=== PATIENT | female | born 1945 | race Caucasian/White ===

== ENCOUNTER 2016-08-08 12:20 | Outpatient (CLI) | payer MEDICARE, OTHER | END 2016-08-08 12:21 | disposition home or self-care (01) | DX: M17.12 Unilateral primary osteoarthritis, left knee (principal); M25.462 Effusion, left knee ==

== ENCOUNTER 2016-12-04 14:10 | Outpatient (CLI) | payer MEDICARE, OTHER ==
--- NOTE | 2016-12-04 15:12 | Mammography Report ---
DIGITAL DIAGNOSTIC BILATERAL MAMMOGRAM: 12/04/2016 CLINICAL INDICATION: Status post lumpectomy and radiation therapy for right breast cancer. COMPARISON: 03/27/2016, 02/17/2016, 02/09/2016, 01/27/2016, 10/07/2014, 09/30/2013, 06/18/2012, 09/2011, 04/28/2010, 04/14/2010. TECHNIQUE: Bilateral CC and MLO views, right true lateral and spot magnification views. FINDINGS: The breasts again demonstrate heterogeneously dense fibroglandular parenchyma bilaterally. Course and punctate, typically benign calcifications are present. Postoperative and posttreatment changes are noted in the right breast. No suspicious masses, clustered microcalcifications, or regio ns of architectural distortion are identified. IMPRESSION: PROBABLE BENIGN POSTOPERATIVE AND POSTTREATMENT CHANGES IN THE RIGHT BREAST. RECOMMENDATION: Diagnostic right mammogram in six months. BIRADS CATEGORY 3 - PROBABLE BENIGN FINDINGS. STANDARD QUALIFYING STATEMENTS 1. This examination was reviewed with the aid of Computer-Aided Detection (CAD). 2. A negative or benign imaging report should not delay biopsy if clinically suspicious findings are present. Consider surgical consultation if warranted. More than 5% of cancers are not identified by i maging. 3. Dense breasts may obscure an underlying neoplasm. JOB #: [id number] EXT JOB #:[id number]
== END 2016-12-04 14:11 | disposition home or self-care (01) ==
LOC: DI 14:10
PROVIDERS: ATTEND Internal Medicine Hematology & Oncology
DX: C50.811 Malignant neoplasm of overlapping sites of right female breast (principal)
CPT/HCPCS: 77066

== ENCOUNTER 2017-06-25 12:43 | Outpatient (CLI) | payer MEDICARE ==
--- NOTE | 2017-06-25 14:07 | Mammography Report ---
DIGITAL DIAGNOSTIC RIGHT MAMMOGRAM: 06/25/2017 CLINICAL INDICATION: Followup post-lumpectomy. COMPARISON: 12/04/2016, 03/27/2016, 02/17/2016, 02/09/2016, 01/27/2016, 10/07/2014, 09/30/2013, 06/18/2012, 05/05/2011, 04/14/2010. TECHNIQUE: Right CC, MLO, true lateral, spot magnification views. FINDINGS: The right breast again demonstrates heterogeneously dense fibroglandular parenchyma. Postoperative and posttreatment changes in the right breast are stable. Coarse and punctate, typically benign calcifications are present. No suspicious masses, clustered microcalcifications, or regions of architectural distortion are identified. IMPRESSION: PROBABLE BENIGN POSTOPERATIVE AND POSTTREATMENT CHANGES. RECOMMENDATION: DIAGNOSTIC BILATERAL MAMMOGRAM IN SIX MONTHS, TO ASSURE STABILITY. BIRADS CATEGORY 3-PROBABLE BENIGN FINDINGS. STANDARD QUALIFYING STATEMENTS: 1. This examination was reviewed with the aid of Computer-Aided Detection (CAD). 2. A negative or benign imaging report should not delay biopsy if clinically suspicious findings are present. Consider surgical consultation if warranted. More than 5% of cancers are not identified by imaging. 3. Dense breasts may obscure an underlying neoplasm. TD: 06/25/2017 14:03
== END 2017-06-25 12:44 | disposition home or self-care (01) ==
LOC: DI 12:43
PROVIDERS: ATTEND Internal Medicine
DX: Z08 Encounter for follow-up examination after completed treatment for malignant neoplasm (principal); Z85.3 Personal history of malignant neoplasm of breast

== ENCOUNTER 2018-02-07 14:21 | Outpatient (CLI) | payer MEDICARE ==
--- NOTE | 2018-02-07 16:16 | Mammography Report ---
Reason: BILAT DIAG 1YR F/U RIGHT LUMPECTOMY wTOMO Procedure Date: 02/07/2018 Accession Number: [id number] / [id number] Procedure: JAE - Diagnostic Bilat 3D Tripp CPT Code: 56858 FULL RESULT: EXAM: Diagnostic Bilat 3D Tripp DATE: 02/07/2018 3:09 PM CLINICAL HISTORY: 72-year-old female with history of right breast cancer status post lumpectomy and radiation TECHNIQUE: Bilateral CC and MLO views in 2-D and 3-D technique were obtained. COMPARISON: 06/25/2017, 12/04/2016, 03/27/2016. FINDINGS: The breasts demonstrate heterogeneously dense fibroglandular parenchyma bilaterally. Postsurgical changes are again seen in the right breast. Typically benign coarse calcifications are also seen in the left breast. No suspicious cluster of microcalcifications, mass or architectural distortion is identified. IMPRESSION: Benign findings RECOMMENDATION: Recommend routine annual Screening mammography unless otherwise clinically indicated. BIRADS CATEGORY 2: Benign findings STANDARD QUALIFYING STATEMENTS: 1. This examination was not reviewed with the aid of Computer-Aided Detection (CAD). 2. A negative or benign imaging report should not delay biopsy if clinically suspicious findings are present. Consider surgical consultation if warrented. More than 5% of cancers are not identified by imaging. 3. Dense breasts may obscure an underlying neoplasm. 4. This examination was reviewed with the aid of 3D imaging (tomography).
== END 2018-02-07 14:22 | disposition home or self-care (01) ==
LOC: DI 14:21
PROVIDERS: ATTEND Internal Medicine
DX: C50.811 Malignant neoplasm of overlapping sites of right female breast (principal); M81.0 Age-related osteoporosis without current pathological fracture
CPT/HCPCS: 77062; 77066; 77080

== ENCOUNTER 2018-02-07 14:22 | Outpatient (CLI) | payer MEDICARE ==
--- NOTE | 2018-02-08 14:27 | DEXA Report ---
Reason: OSTEOPOROSIS Procedure Date: 02/07/2018 Accession Number: [id number] / [id number] Procedure: DEX - Dexa Spine and/or Hip CPT Code: FULL RESULT: EXAM: Dexa Spine and/or Hip DATE: 02/07/2018 2:58 PM CLINICAL HISTORY: OSTEOPOROSIS TECHNIQUE: Dual energy x-ray absorptiometry (DXA) was performed on a [employer] System. Regions measured are the AP Spine, femoral neck, and if needed forearm. COMPARISON: None. In accordance with the International Society for Clinical Densitometry (ISCD) guidelines, data from previous exams may be reanalyzed using current recommendations and techniques. This is done to allow a more accurate basis for comparison with the current study. FINDINGS: The data for the lumbar spine is as follows: BMD (g/cm/cm) T-SCORE Z-SCORE REGION L1 0.850 -2.3 -0.3 L2 0.863 -2.8 -0.8 L3 0.900 -2.5 -0.5 L4 0.906 -2.5 -0.5 TOTAL 0.884 -2.5 -0.5 NOTE: All evaluable vertebrae are used for classification The data for the hip is as follows: BMD (g/cm/cm) T-SCORE Z-SCORE REGION Neck 0.694 -2.5 -0.5 TOTAL 0.725 -2.2 -0.5 NOTE: The femoral neck or total proximal femur, whichever is lowest, is used for classification. IMPRESSION: THE WHO CLASSIFICATION BASED ON THE INTERNATIONAL REFERENCE STANDARD IS OSTEOPOROSIS. THE FRACTURE RISK IS HIGH. RECOMMENDATION: Patients with diagnosis of osteoporosis or osteopenia should have regular bone mineral density assessment. For those eligible for Medicare, routine testing is allowed once every 2 years. Testing frequency can be increased for patients who have rapidly progressing disease or for those who are receiving medical therapy to restore bone mass. COMMENT: World Health Organization (WHO) definitions for osteoporosis and osteopenia: NORMAL BMD: T-score at -1.0 or higher, fracture risk is low OSTEOPENIA BMD: T-score between -1.0 and -2.5, fracture risk is increased. OSTEOPOROSIS BMD: T-score at -2.5 or lower, fracture risk is high. National Osteoporosis Foundation recommends: 1. Obtain adequate dietary calcium (at least 1200 mg per day) and vitamin D (400-800 international units per day). 2. Participate, as appropriate, in regular weightbearing and muscle-strengthening exercise. 3. Avoid tobacco use and reduce alcohol and caffeine intake. 4. For more detailed information see the website at www.NOF.org.
== END 2018-02-07 14:23 | disposition home or self-care (01) ==
LOC: DI 14:22
PROVIDERS: ATTEND Internal Medicine
DX: M81.0 Age-related osteoporosis without current pathological fracture (principal)
CPT/HCPCS: 77080

== ENCOUNTER 2018-08-12 10:52 | Outpatient (CLI) | payer MEDICARE ==
--- NOTE | 2018-08-12 13:07 | Mammography Report ---
Reason: R BREAST CA Procedure Date: 08/12/2018 Accession Number: [id number] / [id number] Procedure: JAE - Diagnostic Dig RT CPT Code: FULL RESULT: EXAM: Diagnostic Dig RT DATE: 08/12/2018 11:35 AM CLINICAL HISTORY: Diagnostic mammogram. Personal history of right breast cancer status post lumpectomy with chemoradiation. TECHNIQUE: (R) - Right CC and MLO views were obtained. A right spot CC, right spot ML and right ML view were also obtained. COMPARISON: 02/07/2018 through 09/30/2013. PARENCHYMAL PATTERN: (D) - The breast(s) demonstrate(s) heterogeneously dense fibroglandular parenchyma. FINDINGS: Expected evolution of posttreatment changes, probably benign, with typically benign calcifications. There are no suspicious masses, calcifications, or areas of distortion. IMPRESSION: Probably Benign. BI-RADS category 3. RECOMMENDATION: (6MOS) - Recommend 6 month follow-up exam. At the time of annual left breast screening. BI-RADS CATEGORY: (3) - Probably Benign. STANDARD QUALIFYING STATEMENTS: 1. This examination was not reviewed with the aid of Computer-Aided Detection (CAD). 2. A negative or benign imaging report should not preclude biopsy if clinically suspicious findings are present. 3. Dense breasts may obscure an underlying neoplasm. 4. This examination was reviewed with the aid of 3D breast imaging (tomosynthesis).
== END 2018-08-12 10:53 | disposition home or self-care (01) ==
LOC: DI 10:52
PROVIDERS: ATTEND Internal Medicine
DX: Z08 Encounter for follow-up examination after completed treatment for malignant neoplasm (principal); Z85.3 Personal history of malignant neoplasm of breast

== ENCOUNTER 2019-01-27 09:41 | Outpatient (CLI) | payer MEDICARE ==
[2019-01-27 17:25] LABS: BASOPHILS # (AUTO) 0.1 10^3/uL (0.0-0.1); EOSINOPHILS # (AUTO) 0.3 10^3/uL (0.0-0.7); EOSINOPHILS % (AUTO) 4.8 %; HGB - HEMOGLOBIN 14.1 g/dL (12.0-16.0); LYMPHOCYTES # (AUTO) 1.6 10^3/uL (1.5-3.5); LYMPHOCYTES % (AUTO) 27.2 %; MEAN CORPUSCULAR HEMOGLOBIN 29.7 pg (27.0-31.0); MEAN CORPUSCULAR HGB CONC 32.2 g/dL (32.0-36.0); MEAN CORPUSCULAR VOLUME 92.2 fL (81.0-99.0); MEAN PLATELET VOLUME 10.9 fL (7.9-10.8); MONOCYTES # (AUTO) 0.5 10^3/uL (0.0-1.0); MONOCYTES % (AUTO) 8.7 %; NEUTROPHILS # (AUTO) 3.4 10^3/uL (1.5-6.6); PLT - PLATELET COUNT 234 10^3/uL (130-450); RED BLOOD COUNT 4.75 10^6/uL (4.20-5.40); RED CELL DISTRIBUTION WIDTH 12.9 % (12.0-15.0); WHITE BLOOD COUNT 5.9 x10^3/uL (4.8-10.8)
[2019-01-27 17:41] LABS: ALBUMIN 4.1 g/dL (3.2-5.5); ALBUMIN/GLOBULIN RATIO 1.6 (1.0-2.2); ALKALINE PHOSPHATASE 60 IU/L (42-121); ALT ALANINE AMINOTRANSFERASE 19 IU/L (10-60); AST ASPARTATE AMINOTRANSFERASE 25 IU/L (10-42); BUN - BLOOD UREA NITROGEN 15 mg/dL (6-20); CALCIUM 9.7 mg/dL (8.5-10.3); CARBON DIOXIDE - CO2 28 mmol/L (21-32); CHLORIDE 104 mmol/L (101-111); CHOL/HDL RATIO 3.8 (<4.4); CHOLESTEROL 275 mg/dL; CREATININE 0.7 mg/dL (0.4-1.0); GFR - MDRD 82 (>89); GLUCOSE 87 mg/dL (70-100); HDL CHOLESTEROL 72 mg/dL; LDL CHOLESTEROL,CALCULATED 171 mg/dL; LDL/HDL RATIO 2.4 (<4.4); SODIUM 140 mmol/L (135-145); TOTAL PROTEIN 6.7 g/dL (6.7-8.2); VLDL CHOLESTEROL 32 mg/dL
[2019-01-27 17:45] LABS: HB2 TOTAL 14.4 g/dL; HEMOGLOBIN A1C 0.49 g/dL; HEMOGLOBIN A1C % 5.3 % (4.6-6.2)
== END 2019-01-27 09:42 | disposition home or self-care (01) ==
LOC: LAB.S 09:41
PROVIDERS: ATTEND Internal Medicine
DX: E78.5 Hyperlipidemia, unspecified (principal); G56.00 Carpal tunnel syndrome, unspecified upper limb; M19.90 Unspecified osteoarthritis, unspecified site; M81.0 Age-related osteoporosis without current pathological fracture; R73.01 Impaired fasting glucose; C50.919 Malignant neoplasm of unspecified site of unspecified female breast; H26.9 Unspecified cataract
CPT/HCPCS: 36415; 80053; 80061; 82306; 83036; 83721; 85025

== ENCOUNTER 2019-02-11 13:46 | Outpatient (CLI) | payer MEDICARE ==
--- NOTE | 2019-02-11 15:21 | Mammography Report ---
Reason: RT BREAST CA Procedure Date: 02/11/2019 Accession Number: [id number] / [id number] Procedure: JAE - Diagnostic Dig Bilat CPT Code: FULL RESULT: EXAM: Diagnostic Dig Bilat DATE: 02/11/2019 2:35 PM CLINICAL HISTORY: Diagnostic examination. History of nulliparity. Personal history of breast cancer status post right breast lumpectomy in 2016. TECHNIQUE: (B) - Bilateral CC and MLO views were obtained. Right ML images are obtained. COMPARISON: 08/12/2018 through 09/30/2013. PARENCHYMAL PATTERN: (D) - The breast(s) demonstrate(s) heterogeneously dense fibroglandular parenchyma. FINDINGS: There are typically benign coarse calcifications. Continued probably benign interval evolution of right breast post surgical changes is noted. There are no suspicious masses, calcifications, or areas of distortion. IMPRESSION: Probably Benign. BI-RADS category 3. RECOMMENDATION: (12MOS) - Recommend 12 month follow-up exam. BI-RADS CATEGORY: (3) - Probably Benign. STANDARD QUALIFYING STATEMENTS: 1. This examination was not reviewed with the aid of Computer-Aided Detection (CAD). 2. A negative or benign imaging report should not preclude biopsy if clinically suspicious findings are present. 3. Dense breasts may obscure an underlying neoplasm. 4. This examination was reviewed with the aid of 3D breast imaging (tomosynthesis).
== END 2019-02-11 13:47 | disposition home or self-care (01) ==
LOC: DI 13:46
PROVIDERS: ATTEND Internal Medicine
DX: C50.911 Malignant neoplasm of unspecified site of right female breast (principal)
CPT/HCPCS: 77066

== ENCOUNTER 2019-07-09 08:45 | Day surgery (SDC) | payer MEDICARE ==
[2019-07-09] MEDS ORDERED: MIDAZOLAM 2 MG/2 ML VIAL IVP ONE (12:22)
[2019-07-09] MEDS ORDERED: LACTATED RINGERS 1,000 ML IV ONE (12:22)
[2019-07-09] MEDS ORDERED: fentaNYL 250 MCG/5 ML VIAL IVP ONE (12:22)
[2019-07-09 14:16] VITALS: BP 101/71
== END 2019-07-09 08:46 | disposition home or self-care (01) ==
LOC: SDS 08:45
PROVIDERS: ATTEND Surgery
DX: Z12.11 Encounter for screening for malignant neoplasm of colon (principal); Z86.010 Personal history of colon polyps; K63.89 Other specified diseases of intestine; C50.919 Malignant neoplasm of unspecified site of unspecified female breast
CPT/HCPCS: G0105; J3010; J7120

== ENCOUNTER 2020-02-05 10:43 | Outpatient (CLI) | payer MEDICARE ==
--- NOTE | 2020-02-06 16:46 | Mammography Report ---
BILATERAL DIGITAL DIAGNOSTIC MAMMOGRAM 3D/2D: 02/05/2020 CLINICAL: Patient returns for magnification views of microcalcifications in the right breast. Comparison is made to exams dated: 02/11/2019 mammogram, 08/12/2018 mammogram, 02/07/2018 mammogram, 06/25/2017 mammogram, 12/04/2016 mammogram, and 03/27/2016 mammogram - [facility]. Th e tissue of both breasts is heterogeneously dense. This may lower the sensitivity of mammography. There is an irregular equal density focal asymmetry with an indistinct margin in the left breast at 2 o'clock posterior depth. This is seen on the CC spot additional view, but not well seen on the MLO or ML views. There is architectural distortion associated with the focal asymmetry best seen on the tomosynthesis. Post operative finding in the right breast is stable in appearance. No other significant masses, calcifications, or other findings are seen in either breast. IMPRESSION: INCOMPLETE: NEEDS ADDITIONAL IMAGING EVALUATION 1) The irregular equal density focal asymmetry in the left breast is indeterminate. -A targeted ultrasound is recommended and will immediately follow. 2) Stable appearance of the right breast post-operative changes. -Recommend continued mammographic follow-up. This exam was interpreted at Station ID: [id number]. NOTE: For mammograms, a report in lay terms will be sent to the patient. Approximately 15% of breast malignancies will not be visualized mammographically. In the management of a palpable breast mass, a negative mammogram must not discourage biopsy of a clinically suspicious lesion. Electronically Signed By: Edgar Camarillo M.D. slc/:02/05/2020 12:51:58 ACR BI-RADS Category 0: Incomplete 3340F PARENCHYMAL PATTERN: (D) - The breast(s) demonstrate(s) heterogeneously dense fibroglandular parliy ma. BI-RADS CATEGORY: (0) - 0 Ultrasound [id number] Immediate follow-up LATERALITY: (B)
--- NOTE | 2020-02-06 16:46 | Ultrasound Report ---
LIMITED ULTRASOUND OF LEFT BREAST AND AXILLA: 02/05/2020 CLINICAL: Patient returns for additional imaging over a suspected mass in the left breast. Comparison is made to exams dated: 02/05/2020 mammogram, 02/11/2019 mammogram, 08/12/2018 mammogram, 1 mammogram, 06/25/2017 mammogram, and 12/04/2016 mammogram - [facility]. Color flow and real-time ultrasound of the left breast upper outer quadrant and axilla regions were p erformed. Pryor scale images of the real-time examination were reviewed. There is a 1.2 cm x 0.9 cm x 0.7 cm irregular mass in the left breast at 2 o'clock posterior depth 6 cm from the nipple. This irregular mass is hypoechoic with posterior acoustic shadowing. This corre lates with mammography findings. Color flow imaging demonstrates that there is an adjacent vasculari ty. No significant abnormalities were seen sonographically in the left axilla. IMPRESSION: SUSPICIOUS OF MALIGNANCY The 1.2 cm x 0.9 cm x 0.7 cm irregular mass in the left breast 2:00 6 cm from the nipple is at a mode rate suspicion for malignancy. An ultrasound guided biopsy is recommended. Exam findings were discussed with the patient by Dr. Home Morris. This exam was interpreted at Station ID: [id number]. Electronically Signed By: Edgar Camarillo M.D. slc/:02/05/2020 12:55:09 Ultrasound BI-RADS: 4b Moderate suspicion of malignancy BI-RADS CATEGORY: (4b) - Mod Susp None [id number] Immediate follow-up LATERALITY: ()
== END 2020-02-05 10:44 | disposition home or self-care (01) ==
LOC: DI 10:43
PROVIDERS: ATTEND Internal Medicine
DX: N63.21 Unspecified lump in the left breast, upper outer quadrant (principal)
CPT/HCPCS: 76642; 77066

== ENCOUNTER 2020-02-11 12:05 | Outpatient (CLI) | payer MEDICARE ==
[2020-02-11] MEDS ORDERED: BUFFERED LIDOCAINE 10 ML SYRINGE ONE (12:19)
[2020-02-11] MEDS ORDERED: BUFFERED LIDOCAINE 10 ML SYRINGE IU ONE (16:28)
--- NOTE | 2020-02-16 07:06 | Ultrasound Report ---
ULTRASOUND GUIDED BIOPSY LEFT BREAST USING VACUUM DEVICE WITH MARKING DEVICE INSERTED AND POST DIGITA L MAMMOGRAPHIC IMAGIN02/11/2020 CLINICAL: Left breast mass. PATIENT CONSENT: Risks (minor bleeding, infection, vasovagal reaction and repeat procedure), benefits and alternatives were explained to the patient and written informed consent was obtained. Correlation is made to exams dated: 02/05/2020 ultrasound, 02/05/2020 mammogram, 02/11/2019 mammogram, 08/12/2018 mammogram, 02/07/2018 mammogram, and 06/25/2017 mammogram - [facility]. An ultrasound guided biopsy using real-time ultrasound was performed for the 1.2 cm x 0.9 cm x 0.7 cm mass located in the left breast at 2 o'clock posterior depth 6 cm from the nipple. This was describ ed on the previous ultrasound report. The skin was prepped in the usual manner. Local anesthetic wa s administered to the access site. A skin caleb was made in the breast. The abnormality was approach ed from the lateral aspect. A 12 gauge biopsy needle was placed adjacent to the abnormality under ul trasound guidance. Once the needle was documented to be in the correct location, three specimens wer e obtained using the [employer] system. A clip was inserted into the biopsy cavity. A skin closur e strip and a sterile dressing were applied to the access site. Post procedure digital mammographic imaging demonstrates the location device at the targeted area and partial removal of the abnormality. The specimens were sent to the laboratory for pathological analysis. IMPRESSION: ULTRASOUND GUIDED BIOPSY MALIGNANT Ultrasound guided biopsy of the 1.2 cm x 0.9 cm x 0.7 cm mass in the left breast at 2 o'clock posteri or depth 6 cm from the nipple was successful with no apparent post procedure complications. Patholog y indicates malignant invasive lobular carcinoma ([place]). Pathology results are concordant with imaging findings. A surgical/oncologic consultation is recommended. This exam was interpreted at Station ID: [id number]. Home Sosa M.D., jr,aty/:02/13/2020 18:19:42 BI-RADS CATEGORY: () - Unspecified - other recall n/a LATERALITY: (B)
== END 2020-02-11 12:06 | disposition home or self-care (01) ==
LOC: DI 12:05
PROVIDERS: ATTEND Internal Medicine
DX: C50.212 Malignant neoplasm of upper-inner quadrant of left female breast (principal); Z17.0 Estrogen receptor positive status [ER+]
CPT/HCPCS: 19083

== ENCOUNTER 2020-03-24 09:04 | Outpatient (CLI) | payer MEDICARE ==
[2020-03-24] MEDS ORDERED: GADOBUTROL 7.5 MMOL/7.5 ML VIAL ONE (09:27)
[2020-03-24] MEDS: GADOBUTROL 7.5 MMOL/7.5 ML VIAL IVP ONE (11:57)
--- NOTE | 2020-03-26 09:38 | MRI Report ---
BREAST MRI OF BOTH BREASTS- WITH CAD: 03/24/2020 CLINICAL: Patient returns today to evaluate a focal asymmetry in the left breast. No prior exams were available for comparison. Interpretation of this MRI was correlated with available mammograms, ultrasounds, and clinical inform ation. Informed consent was obtained from the patient. Gadolinium contrast calibrated to patient we ight was injected. Axial T1, T2, sagittal T1, and pre and post contrast T1 images were obtained with a dedicated breast MRI. Post processing was performed including computer generated subtraction, com puter aided calculations of any tumor volumes and dimensions, and 3D multiplanar reconstruction. Right breast background enhancement is moderate and asymmetric increased when compared to the left, w hich may reflect an element of scarring related to prior partial mastectomy changes. There is no mas s or suspicious enhancement in the right breast. No skin thickening or neovascularity. The right NAC is unremarkable. No threshold enlarged or suspicious right axillary or internal mammary lymph nodes. Left breast background enhancement is mild, asymetrically decreased when compared with the right. The re is a T1 hyperintense hematoma vs proteinaceous seroma at the biopsy site measuring 1.1 cm maximum axial dimension, and containing the biopsy clip (axial series 901 image 42/67). Along the medial and superior aspect of the biopsy cavity, there is faint enhancement measuring approximately 1.0 x 1.5 x 0.8 cm AP x CC x LR. No additional abnormal enhancement in the left breast. No skin thickening or ashley vascularity. Normal appearance of the nipple areolar complex. No supicious left axillary or internal mammary lymph node. IMPRESSION: KNOWN BIOPSY PROVEN MALIGNANCY Left breast invasive lobular carcinoma, status post biopsy. Post-procedural hematoma (vs proteinaceou s seroma) measuring 1.1 cm at the lateral aspect of the mass, marginated medially and superiorly by e nhancing tumor measruing 1.0 x 1.5 x 0.8 cm AP x CC x LR. No additional suspicious abnormality in the left breast. No findings of metastatic or contralateral disease. This exam was interpreted at Station ID: [id number]. Electronically Signed By: Home Morris M.D. jr/:03/26/2020 09:31:52 ACR BI-RADS Category 6: Known biopsy proven malignancy 3346F BI-RADS CATEGORY: (6) - 6 Unspecified - other recall n/a LATERALITY: (B)
== END 2020-03-24 09:05 | disposition home or self-care (01) ==
LOC: DI 09:04
PROVIDERS: ATTEND Surgery
DX: C50.912 Malignant neoplasm of unspecified site of left female breast (principal)
CPT/HCPCS: 77049; A9585

== ENCOUNTER 2020-04-29 17:06 | Outpatient (CLI) | payer MEDICARE | END 2020-04-29 17:07 | disposition home or self-care (01) | LOC: COV 17:06 | PROVIDERS: ATTEND Surgery | DX: Z01.812 Encounter for preprocedural laboratory examination (principal); C50.912 Malignant neoplasm of unspecified site of left female breast; Z20.828 Contact with and (suspected) exposure to other viral communicable diseases ==

== ENCOUNTER 2020-05-03 08:05 | Day surgery (SDC) | payer MEDICARE ==
[2020-05-03] MEDS ORDERED: BUFFERED LIDOCAINE 10 ML SYRINGE ONE (09:10)
[2020-05-03] MEDS ORDERED: ATROPINE ABBOJECT 1 MG/10 ML SYRINGE IVP PRN (09:15)
[2020-05-03] MEDS ORDERED: MORPHINE 2 MG/ML CARPUJECT IVP PRN (09:15)
[2020-05-03] MEDS ORDERED: fentaNYL 100 MCG/2 ML VIAL IVP PRN (09:15)
[2020-05-03] MEDS ORDERED: ePHEDrine 50 MG/ML VIAL IVP PRN (09:15)
[2020-05-03] MEDS ORDERED: METOCLOPRAMIDE 10 MG/2 ML VIAL IVP PRN (09:15)
[2020-05-03] MEDS ORDERED: ONDANSETRON 4 MG/2 ML VIAL IVP PRN ×2 (09:15→15:43)
[2020-05-03] MEDS ORDERED: HYDROmorphone 0.5 MG/0.5 ML SYRINGE IVP PRN (09:15)
[2020-05-03] MEDS ORDERED: NALOXONE 0.4 MG/ML VIAL IVP PRN (09:15)
--- NOTE | 2020-05-03 09:18 | ANESTHESIA ---
Pre-Anesthesia VS, & Labs - Diagnosis left breast cancer - Procedure left breast lumpectomy following wire localization Vital Signs: Temp Pulse Resp BP Pulse Ox 36.8 C 57 L 16 120/74 99 05/03/20 08:43 05/03/20 08:43 05/03/20 08:43 05/03/20 08:43 05/03/20 08:43 Height: 5 ft 2 in Weight (kg): 57 kg Body Mass Index: 22.9 BMI Classification: Healthy weight - NPO >8 hours - Is Patient ?: No - Lab Results Lab results reviewed: Yes Home Medications and Allergies Active Medications Scopolamine HBr (Scopolamine Patch) 1 patch TOP Q3D RUBENS Calcium Carbonate [Calcium] 4,000 mg PO DAILY 04/12/16 Cholecalciferol (Vitamin D3) [Vitamin D3] 2,000 units PO DAILY 04/12/16 Multivitamin [Multiple Vitamins] 1 tab PO DAILY 04/12/16 Niacin [Niacin ER] 2,000 mg PO DAILY 04/12/16 Red Yeast Rice 2,400 mg PO DAILY 04/12/16 Magnesium Oxide [Magnesium] 1 cap PO DAILY 08/15/17 Allergies/Adverse Reactions: Allergies Allergy/AdvReac Type Severity Reaction Status Date / Time No Known Drug Allergies Allergy Verified 02/25/20 13:14 Anes History & Medical History - Anesthetic History Anesthesia Complications: reports: No previous complications Family history of Anesthesia Complications: Denies Family history of Malignant Hyperthermia: Denies - Medical History Cardiovascular: reports: High cholesterol Pulmonary: reports: Pneumonia Gastrointestinal: reports: GERD, Colon polyps Urinary: reports: None Musculoskeletal: reports: Osteoarthritis, Osteoporosis Endocrine/Autoimmune: reports: None Skin: reports: None - Surgical History General: Colonoscopy Gynecologic: Other Orthopedic: Other Exam General: Alert, Oriented x3, Cooperative, No acute distress Dental: WNL Mouth Openin Fingerbreadth Neck Mobility: Normal Mallampati classification: II Respiratory: Lungs clear, Normal breath sounds, No respiratory distress, No accessory muscle use Cardiovascular: Regular rate, Normal S1, Normal S2, No murmurs Plan Anesthesia Type: General Consent for Procedure(s) Verified and Reviewed: Yes Code Status: Attempt Resuscitation ASA classification: 2-Mild systemic disease Is this case an emergency?: No
[2020-05-03] MEDS ORDERED: SCOPOLAMINE PATCH TOP SCH (10:00)
[2020-05-03] MEDS ORDERED: LACTATED RINGERS 1,000 ML IV SCH (10:00)
[2020-05-03] MEDS ORDERED: BUFFERED LIDOCAINE 10 ML SYRINGE IU ONE (11:05)
[2020-05-03] MEDS ORDERED: ceFAZolin 2 GM/50 ML 2 GM/50 ML BAG IV ONE (11:26)
[2020-05-03] MEDS ORDERED: BUPIVACAINE 0.5%-EPI 1:200000 PF 30 ML VIAL ONE (12:46)
[2020-05-03] MEDS ORDERED: LIDOCAINE 1% 50 ML MDV ONE (12:46)
[2020-05-03] MEDS ORDERED: PROPOFOL 200 MG/20 ML VIAL IVP ONE (13:03)
[2020-05-03] MEDS ORDERED: ONDANSETRON 4 MG/2 ML VIAL ONE (13:03)
[2020-05-03] MEDS ORDERED: DEXAMETHASONE 4 MG/ML VIAL ONE (13:03)
[2020-05-03] MEDS ORDERED: fentaNYL 100 MCG/2 ML VIAL ONE (13:03)
[2020-05-03] MEDS ORDERED: LIDOCAINE-MPF 2% 5 ML VIAL ONE (13:03)
[2020-05-03] MEDS ORDERED: KETOROLAC 30 MG/ML VIAL ONE (13:03)
--- NOTE | 2020-05-03 13:03 | Nuclear Medicine Report ---
PROCEDURE: Lymph Node Scintigraphy INDICATIONS: LT BREAST CA RADIOPHARMACEUTICAL: 0.5-1.0 mCi Millipore filtered Tc-99m sulfur colloid. TECHNIQUE: The area around the nipple was prepped and draped in a sterile fashion. Tc-99m sulfur colloid was in jected intra-dermally in the outer edge of the areola in the left breast. Images were obtained subse quently. A body contour outline was obtained. FINDINGS: There is/are several lymph node(s) in the ipsilateral axilla and left supraclavicular region, which i s marked on the skin and the images for referring physician. IMPRESSION: Administration of radiotracer into the left breast periareolar region for intra-operativ e sentinel lymph node localization. Reviewed by: Eric Gannon MD on 05/03/2020 1:02 PM PST Approved by: Eric Gannon MD on 05/03/2020 1:02 PM PST Station ID: [id number]
[2020-05-03] MEDS ORDERED: BUPIVACAINE 0.5% PF 30 ML VIAL SUBQ ONE ×3 (13:33)
[2020-05-03] MEDS ORDERED: LIDOCAINE 1%-EPI 1:100000 30 ML MDV SUBQ ONE ×3 (13:33)
[2020-05-03] MEDS ORDERED: ACETAMINOPHEN 1,000 MG/100 ML 100 ML IV ONE (14:42)
--- NOTE | 2020-05-03 15:36 | OPERATIVE REPORT ---
Operative Report - General Procedure Date: 05/03/20 Planned Procedure: Left breast lumpectomy and sentinel node biopsy after needle localization and mapping. Pre-Op Diagnosis: Biopsy proven left breast cancer Procedure Performed: Left breast lumpectomy and sentinel node biopsy after needle localization and mapping. Post Op Diagnosis: Same - Procedure Note Primary Surgeon: Luzmaria Anesthesia Provider: BRIAN Altman Pathology: 1. left breast lump with wire - short stitch sup, wire lat, double anterior 2. additional inferior margin - short superior, long lateral, double anter 3. one sentinel node Estimated Blood Loss (mL): 20 Findings: Wire contained in the first specimen Clip and mass contained within the second specimen Complications: None apparent - Other Other Information/Narrative: After obtaining informed consent, the patient was brought to the operating room and placed in the supine position on the operating table. Following successful induction of general endotracheal anesthesia, appropriate padding of all bony prominences, and placement of appropriate monitors, the left breast was prepped and draped in the standard surgical fashion. A timeout was held per scope protocol. All elements of the surgical safety checklist were followed before, during, and after the procedure. We began the procedure with a sentinel node dissection. The site of the brightest node had been marked in radiology with 2 skin marker axis. The neoprobe was used to identify the site of greatest uptake at level 2 in the patient's axilla. The patient is quite thin and has minimal axillary tissue. An incision was created over this area of uptake and carried through the skin and subcutaneous tissue to enter the axillary node packet. The first sentinel node was easily identified. It was large and firm. It was carefully dissected free from surrounding stop structures sharply, all lymphatics and vasculature were addressed with clips prior to division. The node was liberated into the field. 10-second counts are recorded. Survey of the axilla revealed a background of 16 and no additional targets. Background in the room was 0. The axillary incision was then closed in 2 layers with Vicryl and Monocryl sutures. We turned our attention to the left breast mass. The area over the mass and in the periareolar region was infiltrated with a mixture of local anesthetics to cry to field block. A periareolar incision was then created over the region of the target mass. The wire and surrounding tissue were then sharply dissected from surrounding structures and delivered into the field. The specimen was marked for orientation and submitted for specimen radiograph. The clip was not seen within the specimen. An additional inferior margin was obtain in the same manner as the original specimen. That is, it was dissected sharply from the surrounding tissue and delivered into the field. It was marked for orientation and submitted for specimen radiograph. The wire was contained within this sp ecimen. The wound was checked for hemostasis. It was irrigated again with warm water. The wound was then closed in 2 layers with Vicryl and Monocryl sutures. Dermabond was applied to the skin incision. All sponge, needle, and instrument counts were correct at the conclusion of the case. The patient was let awakened anesthesia without difficulty and taken to the postanesthesia care unit in good condition.
[2020-05-03] MEDS ORDERED: LACTATED RINGERS 1,000 ML IV ONE (15:38)
--- NOTE | 2020-05-03 15:41 | ANESTHESIA POST OP EVALUATION ---
Anesthesia Post Eval - Post Anesthesia Eval Vitals: Last Vital Signs Temp 36.8 C 05/03/20 08:43 Pulse 57 L 05/03/20 08:43 Resp 16 05/03/20 08:43 BP 120/74 05/03/20 08:43 Pulse Ox 99 05/03/20 08:43 CV Function Including HR & BP: positive: Stable Pain Control: positive: Satisfactory Nausea & Vomiting: positive: Negative Mental Status: positive: Baseline Respiratory Status: Airway Patent Hydration Status: Satisfactory Anesthesia Complications: positive: None
[2020-05-03] MEDS ORDERED: IBUPROFEN 600 MG TABLET PO PRN (15:43)
[2020-05-03] MEDS ORDERED: oxyCODONE 5 MG TABLET PO PRN (15:43)
[2020-05-03] MEDS ORDERED: ACETAMINOPHEN 325 MG TABLET PO PRN (15:43)
[2020-05-03 16:31] VITALS: BP 124/75
--- NOTE | 2020-05-04 08:00 | Ultrasound Report ---
WIRE LOCALIZATION LEFT BREAST: 05/03/2020 CLINICAL: Pre op wire localization with ultrasound. Correlation is made to exams dated: 03/24/2020 breast MRI, 02/11/2020 ultrasound biopsy, 02/05/2020 u ltrasound, 02/05/2020 mammogram, 02/11/2019 mammogram, and 08/12/2018 mammogram - [facility]. A wire localization was performed for the irregular shaped mass located in the left breast at 2 o'keira ck posterior depth. The skin was prepped in the usual manner. Local anesthetic was administered to the access site. A wire was inserted into the targeted area. IMPRESSION: WIRE LOCALIZATION Wire localization for the mass in the left breast at 2 o'clock posterior depth was successful. A spe cimen radiograph is recommended. This exam was interpreted at Station ID: [id number]. Brodie person/:05/03/2020 15:28:36 BI-RADS CATEGORY: () - Biopsy follow-up [id number] Immediate follow-up LATERALITY: (B)
--- NOTE | 2020-05-04 08:00 | Mammography Report ---
SPECIMEN LEFT BREAST: 05/03/2020 CLINICAL: Left breast specimen. Correlation is made to exams dated: 05/03/2020 mammogram, 05/03/2020 localization, and 02/05/2020 mammogr am - [facility]. A surgical specimen was imaged for the previous biopsy site located in the left breast at 2 o'clock IMPRESSION: SPECIMEN The imaged specimen includes a biopsy clip and the localization wire. Waiting for pathology results. A final report will be issued when these become available. This exam was interpreted at Station ID: [id number]. Brodie person/:05/03/2020 15:30:33 BI-RADS CATEGORY: () - Biopsy follow-up [id number] Immediate follow-up LATERALITY: (B)
--- NOTE | 2020-05-06 11:38 | Mammography Report ---
UNILATERAL LEFT DIGITAL DIAGNOSTIC MAMMOGRAM 3D/2D: 05/03/2020 CLINICAL: Post left breast ultrasound guided wire localization placement imaging. Comparison is made to exams dated: 05/03/2020 localization, 02/11/2020 ultrasound biopsy, 02/11/2019 m ammogram, 08/12/2018 mammogram, and 02/07/2018 mammogram - [facility]. The tissue o f left breast is heterogeneously dense. This may lower the sensitivity of mammography. There is a localization wire in the appropriate position in the left breast at 2 o'clock middle depth . There is a biopsy clip associated with the wire. IMPRESSION: POST PROCEDURE MAMMOGRAM FOR MARKER PLACEMENT Successful wire localization. Recommend specimen radiograph. This exam was interpreted at Station ID: [id number]. NOTE: For mammograms, a report in lay terms will be sent to the patient. Approximately 15% of breast malignancies will not be visualized mammographically. In the management of a palpable breast mass, a negative mammogram must not discourage biopsy of a clinically suspicious lesion. Electronically Signed By: Brodie person/:05/06/2020 09:09:59 ACR BI-RADS Category Post-procedure mammogram for marker placement PARENCHYMAL PATTERN: (D) - The breast(s) demonstrate(s) heterogeneously dense fibroglandular phi alexander. BI-RADS CATEGORY: () - Biopsy follow-up [id number] Immediate follow-up LATERALITY: (B)
== END 2020-05-03 08:06 | disposition home or self-care (01) ==
LOC: SDS 08:05
PROVIDERS: ATTEND Surgery
PROC: 07B60ZX Excision of Left Axillary Lymphatic, Open Approach, Diagnostic (ICD-10-PCS; 2020-05-03)
PROC: 0HBU0ZZ Excision of Left Breast, Open Approach (ICD-10-PCS; principal; 2020-05-03 13:45)
DX: C50.412 Malignant neoplasm of upper-outer quadrant of left female breast (principal); Z17.0 Estrogen receptor positive status [ER+]; E78.5 Hyperlipidemia, unspecified; M81.0 Age-related osteoporosis without current pathological fracture; M17.10 Unilateral primary osteoarthritis, unspecified knee; Z87.01 Personal history of pneumonia (recurrent)
CPT/HCPCS: 19285; 19301; 38525; 76098; 77065; 78195; J0131; J0690; J7120; 88307; 88342

== ENCOUNTER 2020-08-26 09:46 | Outpatient (CLI) | payer MEDICARE ==
--- NOTE | 2020-08-26 17:13 | DEXA Report ---
PROCEDURE: Dexa Spine and/or Hip INDICATIONS: OSTEOPOROSIS TECHNIQUE: Dual energy x-ray absorptiometry (DXA) was performed on a [employer] System. Regions measur ed are the AP Spine, femoral neck, and if needed forearm. COMPARISON: 02/07/2018. FINDINGS: Lumbar Spine: Bone Mineral Density 0.835 g/cm/cm,T score -2.9, osteoporosis Left Hip: Bone Mineral Density 0.754 g/cm/cm,T score -2.0, osteopenia Left Femoral Neck: Bone Mineral Density 0.728 g/cm/cm, T score -2.2, osteopenia (T score greater or equal to -1.0: NORMAL) (T score from -1.1 to -2.4: OSTEOPENIA) (T score less than or equal to -2.5 to: OSTEOPOROSIS) Impression: Osteoporosis. Patient's bone mineral density has increased by 4% in the interval since pr ior examination obtained 02/07/2018. Patients with diagnosis of osteoporosis or osteopenia should have regular bone mineral density assess ment. For those eligible for Medicare, routine testing is allowed once every 2 years. Testing frequ ency can be increased for patients who have rapidly progressing disease or for those who are receivin g medical therapy to restore bone mass. Reviewed by: Stephanie Weinberg MD, PhD on 08/26/2020 5:11 PM PDT Approved by: Stephanie Weinberg MD, PhD on 08/26/2020 5:11 PM PDT Station ID: [id number]
== END 2020-08-26 09:47 | disposition home or self-care (01) ==
LOC: DI 09:46
PROVIDERS: ATTEND Internal Medicine
DX: C50.911 Malignant neoplasm of unspecified site of right female breast (principal); C50.912 Malignant neoplasm of unspecified site of left female breast; M81.0 Age-related osteoporosis without current pathological fracture

== ENCOUNTER 2021-02-17 09:08 | Outpatient (CLI) | payer MEDICARE ==
--- NOTE | 2021-02-18 09:02 | Mammography Report ---
BILATERAL DIGITAL DIAGNOSTIC MAMMOGRAM 3D/2D: 02/17/2021 CLINICAL: Post left lumpectomy. Routine screening. Personal history of right breast cancer and new di agnosis of left breast cancer. Comparison is made to exams dated: 05/03/2020 specimen, 05/03/2020 mammogram, 03/24/2020 breast MRI, 02/05/2020 ultrasound, 02/11/2020 ultrasound biopsy, and 05/03/2020 localization - [facility] nt. The tissue of both breasts is heterogeneously dense. This may lower the sensitivity of mammogr aphy. There is a new post-surgical scar in the left breast at 2 o'clock middle depth. Left axillary clip. No other significant masses, calcifications, or other findings are seen in either breast. IMPRESSION: BENIGN There is no mammographic evidence of malignancy. Left breast 2:00 post-operative scar. Possible underlying seroma. Consider re-imaging the left breast at 6 months. Exam findings were conveyed to the patient. This exam was interpreted at Station ID: [id number]. NOTE: For mammograms, a report in lay terms will be sent to the patient. Approximately 15% of breast malignancies will not be visualized mammographically. In the management of a palpable breast mass, a negative mammogram must not discourage biopsy of a clinically suspicious lesion. Electronically Signed By: Edgar Camarillo M.D. slc/:02/17/2021 10:30:43 ACR BI-RADS Category 2: Benign Finding(s) 3342F PARENCHYMAL PATTERN: (D) - The breast(s) demonstrate(s) heterogeneously dense fibroglandular phi alexander. BI-RADS CATEGORY: (2) - 2 Mammogram [id number] 6 month follow-up LATERALITY: (B)
== END 2021-02-17 09:09 | disposition home or self-care (01) ==
LOC: DI 09:08
PROVIDERS: ATTEND Internal Medicine
DX: C50.912 Malignant neoplasm of unspecified site of left female breast (principal); C50.412 Malignant neoplasm of upper-outer quadrant of left female breast

== ENCOUNTER 2022-04-25 10:44 | Outpatient (CLI) | payer MEDICARE ==
--- NOTE | 2022-04-26 10:41 | Mammography Report ---
BILATERAL DIGITAL DIAGNOSTIC MAMMOGRAM 3D/2D: 04/25/2022 CLINICAL: Personal history of bilateral breast cancer. Comparison is made to exams dated: 02/17/2021 mammogram, 05/03/2020 mammogram, 03/24/2020 breast MRI, 02/05/2020 mammogram, 02/11/2019 mammogram, and 08/12/2018 mammogram - [facility]. Both breasts are heterogeneously dense, which may obscure small masses (category c / 51-75% glandular tissue). The patient is status post partial mastectomy right breast. The patient is status post partial maste ctomy left breast. There are benign appearing coarse, punctate, round calcifications in both breasts that are not significantly changed. No significant masses, calcifications, or other findings are seen in either breast. IMPRESSION: BENIGN There is no mammographic evidence of malignancy. Expected post surgical changes of the bilateral isiah st compatible with bilateral partial mastectomies. A 1 year screening mammogram is recommended; howev er, shorter interval surveillance can be considered at the direction of treating oncologic/surgical t eam. Findings and recommendations were conveyed to the patient during today's evaluation. Future imaging is recommended as follows: 11/05/2022 screening mammogram. This exam was interpreted at Station ID: [id number]. NOTE: For mammograms, a report in lay terms will be sent to the patient. Approximately 15% of breast malignancies will not be visualized mammographically. In the management of a palpable breast mass, a negative mammogram must not discourage biopsy of a clinically suspicious lesion. Electronically Signed By: Jules Sosa M.D. aty/:04/25/2022 12:13:12 ACR BI-RADS Category 2: Benign Finding(s) 3342F PARENCHYMAL PATTERN: (D) - The breast(s) demonstrate(s) heterogeneously dense fibroglandular parjerry ma. BI-RADS CATEGORY: (2) - 2 RECOMMENDATION: (ANNUAL) - Recommend routine annual screening mammography. [id number] 1 year screening LATERALITY: (B)
== END 2022-04-25 10:45 | disposition home or self-care (01) ==
LOC: DI 10:44
PROVIDERS: ATTEND Surgery
DX: Z08 Encounter for follow-up examination after completed treatment for malignant neoplasm (principal); Z85.3 Personal history of malignant neoplasm of breast

== ENCOUNTER 2022-10-17 11:46 | Day surgery (SDC) | payer MEDICARE ==
[2022-10-17] MEDS ORDERED: LACTATED RINGERS 1,000 ML IV ONE ×2 (12:32→14:39)
--- NOTE | 2022-10-17 12:38 | ANESTHESIA ---
Pre-Anesthesia VS, & Labs - Diagnosis hx of polyps - Procedure colonoscopy Vital Signs: Temp Pulse Resp BP Pulse Ox O2 Flow Rate 36.5 C 61 22 119/83 H 96 10/17/22 11:56 10/17/22 11:56 10/17/22 11:56 10/17/22 11:56 10/17/22 11:56 Height: 5 ft 2 in Weight (kg): 57 kg Body Mass Index: 22.9 BMI Classification: Normal - NPO >8 hours - Is Patient ?: No Home Medications and Allergies Cholecalciferol (Vitamin D3) [Vitamin D3] 2,000 units PO DAILY 04/12/16 Multivitamin [Multiple Vitamins] 1 tab PO DAILY 04/12/16 Niacin [Niacin ER] 2,000 mg PO DAILY 04/12/16 Red Yeast Rice 2,400 mg PO DAILY 04/12/16 Fulvestrant [Faslodex] 02/02/21 Calcium Citrate 1,200 mg PO DAILY 08/17/21 Magnesium Oxide [Magnesium] 200 mg PO DAILY 02/01/22 Allergies/Adverse Reactions: Allergies Allergy/AdvReac Type Severity Reaction Status Date / Time No Known Drug Allergies Allergy Verified 09/01/20 14:14 Anes History & Medical History - Anesthetic History Anesthesia Complications: reports: No previous complications Family history of Anesthesia Complications: Denies Family history of Malignant Hyperthermia: Denies - Medical History Cardiovascular: reports: High cholesterol Pulmonary: reports: Pneumonia Gastrointestinal: reports: GERD, Colon polyps Urinary: reports: None Musculoskeletal: reports: Osteoarthritis, Osteoporosis Endocrine/Autoimmune: reports: None Skin: reports: None - Surgical History General: reports: Colonoscopy Gynecologic: reports: Other Orthopedic: reports: Other Exam General: Alert, Oriented x3, Cooperative Dental: WNL Mouth Openin Fingerbreadth Mallampati classification: II Thyromental Distance: 4-6 cm Respiratory: Lungs clear Cardiovascular: Regular rate Plan Anesthesia Type: General Consent for Procedure(s) Verified and Reviewed: Yes Code Status: Attempt Resuscitation ASA classification: 2-Mild systemic disease Is this case an emergency?: No
[2022-10-17] MEDS ORDERED: PROPOFOL 200 MG/20 ML VIAL IVP ONE (13:45)
[2022-10-17 14:37] VITALS: BP 110/90
--- NOTE | 2022-10-17 15:03 | ANESTHESIA POST OP EVALUATION ---
Anesthesia Post Eval - Post Anesthesia Eval Vitals: Last Vital Signs Temp 36.0 C L 10/17/22 14:20 Pulse 58 L 10/17/22 14:20 Resp 16 10/17/22 14:20 BP 110/90 H 10/17/22 14:20 Pulse Ox 100 10/17/22 14:20 O2 Flow Rate CV Function Including HR & BP: Stable Pain Control: Satisfactory Nausea & Vomiting: Negative Mental Status: Baseline Respiratory Status: Airway Patent Hydration Status: Satisfactory Anesthesia Complications: None
== END 2022-10-17 11:47 | disposition home or self-care (01) ==
LOC: SDS 11:46
PROVIDERS: ATTEND Surgery
PROC: 0DBL8ZX Excision of Transverse Colon, Via Natural or Artificial Opening Endoscopic, Diagnostic (ICD-10-PCS; 2022-10-17)
PROC: 0DBN8ZX Excision of Sigmoid Colon, Via Natural or Artificial Opening Endoscopic, Diagnostic (ICD-10-PCS; 2022-10-17)
PROC: 0DBM8ZX Excision of Descending Colon, Via Natural or Artificial Opening Endoscopic, Diagnostic (ICD-10-PCS; 2022-10-17)
PROC: 0DBK8ZX Excision of Ascending Colon, Via Natural or Artificial Opening Endoscopic, Diagnostic (ICD-10-PCS; principal; 2022-10-17 12:45)
DX: R19.5 Other fecal abnormalities (principal); D12.2 Benign neoplasm of ascending colon; D12.3 Benign neoplasm of transverse colon; D12.4 Benign neoplasm of descending colon; K63.5 Polyp of colon; K57.30 Diverticulosis of large intestine without perforation or abscess without bleeding
CPT/HCPCS: 45380; J7120

== ENCOUNTER 2022-11-09 07:25 | Day surgery (SDC) | payer MEDICARE ==
[2022-11-09] MEDS: PROPARACAINE 0.5% OPHTH DROPS 15 ML ONE (07:40)
[2022-11-09] MEDS: PHENYLEPHRINE 2.5% OPHTH 2 ML DROPS ONE (07:40)
[2022-11-09] MEDS: CYCLOPENTOLATE 1% OPHTH DROPS 2 ML ONE (07:40)
[2022-11-09] MEDS: KETOROLAC 0.45% OPHTH DROPS ONE (07:40)
[2022-11-09] MEDS ORDERED: MIDAZOLAM 2 MG/2 ML VIAL ONE (08:18)
[2022-11-09] MEDS ORDERED: fentaNYL 100 MCG/2 ML VIAL ONE (08:18)
[2022-11-09] MEDS ORDERED: EPINEPHrine 1 MG/ML AMP ONE (08:27)
[2022-11-09] MEDS ORDERED: TRIAMCIN/MOXIFLOX OPHTHALMIC 0.6 ML VIAL IO ONE (08:27)
[2022-11-09] MEDS ORDERED: BSS/LIDOCAINE/EPINEPHRINE 1 ML VIAL ONE (08:28)
[2022-11-09] MEDS ORDERED: VANCOMYCIN OPHTH (TOPICAL) 10 MG/ML SYRINGE ONE (08:28)
[2022-11-09] MEDS ORDERED: TIMOLOL 0.5% OPHTH DROPS ONE (08:28)
[2022-11-09] MEDS ORDERED: BRIMONIDINE 0.2% OPHTH DROPS 5 ML ONE (08:28)
--- NOTE | 2022-11-09 08:30 | ANESTHESIA ---
Pre-Anesthesia VS, & Labs - Diagnosis left cataract - Procedure left cataract extraction with IOL Vital Signs: Temp Pulse Resp BP Pulse Ox O2 Flow Rate 36.4 C L 64 12 117/72 98 11/09/22 07:35 11/09/22 07:35 11/09/22 07:35 11/09/22 07:35 11/09/22 07:35 Height: 5 ft 2 in Weight (kg): 58 kg Body Mass Index: 23.3 BMI Classification: Normal - NPO >8 hours - Is Patient ?: No Home Medications and Allergies Cholecalciferol (Vitamin D3) [Vitamin D3] 2,000 units PO DAILY 04/12/16 Multivitamin [Multiple Vitamins] 1 tab PO DAILY 04/12/16 Niacin [Niacin ER] 2,000 mg PO DAILY 04/12/16 Red Yeast Rice 2,400 mg PO DAILY 04/12/16 Fulvestrant [Faslodex] 50 mg IM ONCE 02/02/21 Calcium Citrate 1,200 mg PO DAILY 08/17/21 Magnesium Oxide [Magnesium] 200 mg PO DAILY 02/01/22 Allergies/Adverse Reactions: Allergies Allergy/AdvReac Type Severity Reaction Status Date / Time No Known Drug Allergies Allergy Verified 11/08/22 12:45 Anes History & Medical History - Anesthetic History Anesthesia Complications: reports: No previous complications - Medical History Cardiovascular: reports: High cholesterol Pulmonary: reports: Pneumonia Gastrointestinal: reports: GERD, Colon polyps Urinary: reports: None Musculoskeletal: reports: Osteoarthritis, Osteoporosis Endocrine/Autoimmune: reports: None Skin: reports: None Smoking Status: Never smoker History of Cancer?: Yes (breast ) - Surgical History General: reports: Colonoscopy Gynecologic: reports: Other Orthopedic: reports: Other Exam General: Alert, Oriented x3 Dental: WNL Mouth Opening: Greater than 4 Fingerbreadths Neck Mobility: Normal Mallampati classification: II Respiratory: Lungs clear Cardiovascular: Regular rate Plan Anesthesia Type: MAC Consent for Procedure(s) Verified and Reviewed: Yes Code Status: Attempt Resuscitation ASA classification: 2-Mild systemic disease Is this case an emergency?: No
[2022-11-09] MEDS: VANCOMYCIN OPHTH (TOPICAL) 10 MG/ML SYRINGE TOP ONE (08:50)
[2022-11-09] MEDS: BRIMONIDINE 0.2% OPHTH DROPS 5 ML OPTH ONE (08:50)
[2022-11-09] MEDS: EPINEPHrine 1 MG/ML AMP IR ONE (08:50)
[2022-11-09] MEDS: TRIAMCIN/MOXIFLOX OPHTHALMIC 0.6 ML VIAL IO ONE (08:50)
[2022-11-09] MEDS: BSS/LIDOCAINE/EPINEPHRINE 1 ML SYRINGE IO ONE (08:50)
[2022-11-09] MEDS: TIMOLOL 0.5% OPHTH DROPS OPTH ONE (08:50)
[2022-11-09] MEDS: PROPARACAINE 0.5% OPHTH DROPS 15 ML LEFTEYE ONE (08:50)
[2022-11-09] MEDS: LACTATED RINGERS 700 ML IV ONE (08:55)
--- NOTE | 2022-11-09 08:57 | OPERATIVE REPORT ---
Operative Report - Other Other Information/Narrative: Date of Surgery: 11/09/22 Preop Dx: Visually significant cataract left eye. This was the first cataract surgery. Postop Dx: Same Procedure: Phacoemulsification with posterior chamber intraocular lens implant left eye Surgeon: Dr. Gurvinder Mcguire Anesthesia: Monitored anesthesia care Complications: None Operative Indications: This is a 77-year-old F with progressive vision loss in the left eye due to 2-3+ nuclear sclerotic, 1-2+ cortical, and trace posterior subcapsular cataract. Best corrected visual acuity was 20/30 with glare to 20/70 vision in the left eye. Indications for surgery were: - Overall decrease in vision - Difficulty seeing words on a computer screen - Difficulty reading - Difficulty seeing words, closed captions, or game scores on TV - Difficulty driving in low light or at night - Difficulty driving at night because of headlights from other vehicles - Difficulty with glare or bright lights in any situation The patient was consented at length concerning the risks and benefits of cataract surgery after which the patient expressed a desire to proceed with surgery. Operative Procedure: The patient was taken into OR#3 and placed under monitored anesthesia care. A surgical time-out was conducted confirming correct patient, correct procedure, and correct surgical site. The patient was given topical anesthesia and then prepped and draped in the usual sterile fashion. The eye was entered at the 6 and 3 oclock positions. Intracameral Shugarcaine was injected into the anterior chamber followed by a dispersive viscoelastic. A continuous-tear curvilinear capsulorhexis was performed. The nucleus was hydrodissected and phacoemulsified. The cortex was evacuated using automated infusion and aspiration. A cohesive viscoelastic was injected into the capsular bag and a 12.0 diopter intraocular lens was inserted into the bag. Infusion and aspiration were used to evacuate the viscoelastic materials from the eye. The wounds were hydrated and the eye inflated to physiologic pressure using balanced salt solution. Approximately 0.25ml of a mixture of triamcinolone and moxifloxacin was injected trans-sclerally into the vitreous in the inferotemporal quadrant using a 30 gauge cannula. An additional 0.25ml of a mixture of triamcinolone and moxifloxacin was injected subconjunctivally in the superior quadrant for infection and inflammation prophylaxis. Wound integrity was checked with Weck-Oralia sponges. The patient was taken from the operating room in good condition and given post-op instructions.
[2022-11-09 09:15] VITALS: BP 104/65
--- NOTE | 2022-11-09 10:47 | ANESTHESIA POST OP EVALUATION ---
Anesthesia Post Eval - Post Anesthesia Eval Vitals: Last Vital Signs Temp 36.5 C 11/09/22 09:12 Pulse 58 L 11/09/22 09:12 Resp 16 11/09/22 09:12 BP 104/65 11/09/22 09:12 Pulse Ox 98 11/09/22 09:12 O2 Flow Rate CV Function Including HR & BP: Stable Pain Control: Satisfactory Nausea & Vomiting: Negative Mental Status: Baseline Respiratory Status: Airway Patent Hydration Status: Satisfactory Anesthesia Complications: None
== END 2022-11-09 07:26 | disposition home or self-care (01) ==
LOC: SDS 07:25
PROVIDERS: ATTEND Ophthalmology
DX: H25.12 Age-related nuclear cataract, left eye (principal)
CPT/HCPCS: 66984; A9270; J3490; J7120; V2787

== ENCOUNTER 2022-12-21 07:29 | Day surgery (SDC) | payer MEDICARE ==
[~2022-12-21 07:29] MED LIST: CYCLOPENTOLATE 1% OPHTH DROPS 2 ML ONE; KETOROLAC 0.45% OPHTH DROPS ONE; PHENYLEPHRINE 2.5% OPHTH 2 ML DROPS ONE; PROPARACAINE 0.5% OPHTH DROPS 15 ML ONE
[2022-12-21] MEDS ORDERED: LACTATED RINGERS 1,000 ML IV ONE ×2 (07:31→09:10)
--- NOTE | 2022-12-21 08:18 | ANESTHESIA ---
Pre-Anesthesia VS, & Labs - Diagnosis nuclear cataract - Procedure cataract extraction with IOL Vital Signs: Temp Pulse Resp BP Pulse Ox O2 Flow Rate 36.2 C L 51 L 16 110/83 H 99 12/21/22 07:36 12/21/22 07:36 12/21/22 07:36 12/21/22 07:36 12/21/22 07:36 Height: 5 ft 2 in Weight (kg): 58 kg Body Mass Index: 23.3 BMI Classification: Normal - NPO >8 hours - Is Patient ?: No Home Medications and Allergies Cholecalciferol (Vitamin D3) [Vitamin D3] 2,000 units PO DAILY 04/12/16 Multivitamin [Multiple Vitamins] 1 tab PO DAILY 04/12/16 Niacin [Niacin ER] 2,000 mg PO DAILY 04/12/16 Red Yeast Rice 2,400 mg PO DAILY 04/12/16 Fulvestrant [Faslodex] 50 mg IM ONCE 02/02/21 Calcium Citrate 1,200 mg PO DAILY 08/17/21 Magnesium Oxide [Magnesium] 200 mg PO DAILY 02/01/22 Allergies/Adverse Reactions: Allergies Allergy/AdvReac Type Severity Reaction Status Date / Time No Known Drug Allergies Allergy Verified 11/08/22 12:45 Anes History & Medical History - Anesthetic History Anesthesia Complications: reports: No previous complications - Medical History Cardiovascular: reports: High cholesterol Pulmonary: reports: Pneumonia Gastrointestinal: reports: GERD, Colon polyps Urinary: reports: None Musculoskeletal: reports: Osteoarthritis, Osteoporosis Endocrine/Autoimmune: reports: None Skin: reports: None Smoking Status: Never smoker - Surgical History General: reports: Colonoscopy Eyes Ears Nose Throat (EENT): reports: Cataracts Gynecologic: reports: Other Orthopedic: reports: Other Exam General: Alert, Oriented x3 Dental: WNL Mouth Opening: Greater than 4 Fingerbreadths Mallampati classification: II Thyromental Distance: greater than 6 cm Respiratory: Lungs clear Cardiovascular: Regular rate Plan Anesthesia Type: MAC Consent for Procedure(s) Verified and Reviewed: Yes Code Status: Attempt Resuscitation ASA classification: 2-Mild systemic disease Is this case an emergency?: No
[2022-12-21] MEDS ORDERED: TIMOLOL 0.5% OPHTH DROPS ONE (08:32)
[2022-12-21] MEDS ORDERED: TRIAMCIN/MOXIFLOX OPHTHALMIC 0.6 ML VIAL IO ONE ×2 (08:32→08:48)
[2022-12-21] MEDS ORDERED: EPINEPHrine 1 MG/ML AMP ONE (08:32)
[2022-12-21] MEDS ORDERED: BRIMONIDINE 0.2% OPHTH DROPS 5 ML ONE (08:32)
[2022-12-21] MEDS ORDERED: BSS/LIDOCAINE/EPINEPHRINE 1 ML VIAL ONE (08:32)
[2022-12-21] MEDS ORDERED: MIDAZOLAM 2 MG/2 ML VIAL ONE (08:42)
[2022-12-21] MEDS ORDERED: fentaNYL 100 MCG/2 ML VIAL ONE (08:42)
[2022-12-21] MEDS ORDERED: EPINEPHrine 1 MG/ML AMP IR ONE (08:47)
[2022-12-21] MEDS ORDERED: BRIMONIDINE 0.2% OPHTH DROPS 5 ML OPTH ONE (08:47)
[2022-12-21] MEDS ORDERED: VANCOMYCIN OPHTH (TOPICAL) 10 MG/ML SYRINGE TOP ONE (08:48)
[2022-12-21] MEDS ORDERED: TIMOLOL 0.5% OPHTH DROPS OPTH ONE (08:48)
[2022-12-21] MEDS ORDERED: BSS/LIDOCAINE/EPINEPHRINE 1 ML SYRINGE IO ONE (08:48)
[2022-12-21] MEDS ORDERED: PROPARACAINE 0.5% OPHTH DROPS 15 ML EACHEYE ONE (08:48)
--- NOTE | 2022-12-21 09:07 | OPERATIVE REPORT ---
Operative Report - Other Other Information/Narrative: Date of Surgery: 12/21/22 Preop Dx: Visually significant cataract right eye. Cataract surgery was performed in the left eye on [id number]. Postop Dx: Same Procedure: Phacoemulsification with posterior chamber intraocular lens implant right eye Surgeon: Dr. Gurvinder Mcguire Anesthesia: Monitored anesthesia care Complications: None Operative Indications: This is a 77-year-old F with progressive vision loss in the right eye due to 2+ nuclear sclerotic, 1+ cortical, trace posterior subcapsular, and posterior polar cataract. Best corrected visual acuity was 20/25 with glare to 20/70 vision in the right eye. Indications for surgery were: - Difficulty seeing words on a computer screen - Difficulty seeing words, closed captions, or game scores on TV - Difficulty driving in low light or at night - Difficulty driving at night because of headlights from other vehicles - Anisometropia The patient was consented at length concerning the risks and benefits of cataract surgery after which the patient expressed a desire to proceed with surgery. Operative Procedure: The patient was taken into OR#3 and placed under monitored anesthesia care. A surgical time-out was conducted confirming correct patient, correct procedure, and correct surgical site. The patient was given topical anesthesia and then prepped and draped in the usual sterile fashion. The eye was entered at the 6 and 3 oclock positions. Intracameral Shugarcaine was injected into the anterior chamber followed by a dispersive viscoelastic. A continuous-tear curvilinear capsulorhexis was performed. The nucleus was hydrodissected and phacoemulsified. The cortex was evacuated using automated infusion and aspiration. A cohesive viscoelastic was injected into the capsular bag and a 13.0 diopter intraocular lens was inserted into the bag. Infusion and aspiration were used to evacuate the viscoelastic materials from the eye. The wounds were hydrated and the eye inflated to physiologic pressure using balanced salt solution. Approximately 0.25ml of a mixture of triamcinolone and moxifloxacin was injected trans-sclerally into the vitreous in the inferotemporal quadrant using a 30 gauge cannula. An additional 0.25ml of a mixture of triamcinolone and moxifloxacin was injected subconjunctivally in the superior quadrant for infection and inflammation prophylaxis. Wound integrity was checked with Weck-Oralia sponges. The patient was taken from the operating room in good condition and given post-op instructions.
[2022-12-21 09:24] VITALS: BP 112/57; O2SAT 100
--- NOTE | 2022-12-21 11:08 | ANESTHESIA POST OP EVALUATION ---
Anesthesia Post Eval - Post Anesthesia Eval Vitals: Last Vital Signs Temp 36.4 C L 12/21/22 09:16 Pulse 60 12/21/22 09:16 Resp 15 12/21/22 09:16 BP 112/57 L 12/21/22 09:16 Pulse Ox 100 12/21/22 09:16 O2 Flow Rate CV Function Including HR & BP: Stable Pain Control: Satisfactory Nausea & Vomiting: Negative Mental Status: Baseline Respiratory Status: Airway Patent Hydration Status: Satisfactory Anesthesia Complications: None
== END 2022-12-21 07:30 | disposition home or self-care (01) ==
LOC: SDS 07:29
PROVIDERS: ATTEND Ophthalmology
DX: H25.11 Age-related nuclear cataract, right eye (principal)
CPT/HCPCS: 66984; A9270; J3490; J7120

== ENCOUNTER 2023-04-13 10:48 | Outpatient (CLI) | payer MEDICARE ==
--- NOTE | 2023-04-16 07:49 | Mammography Report ---
BILATERAL DIGITAL DIAGNOSTIC MAMMOGRAM 3D/2D: 04/13/2023 CLINICAL: Oncology requested bilateral diagnostic mammogram. History of bilateral breast cancer. Comparison is made to exams dated: 04/25/2022 mammogram - [facility], 11/04/2021 [facility], 02/17/2021 mammogram, 05/03/2020 mammogram, 02/05/2020 mammogram, and 02/11/2019 mammogram - [facility]. Both breasts are heterogeneously dense, which may obscure small masses (category c / 51-75% glandular tissue). There are benign post operative findings in both breasts. No significant masses, calcifications, or other findings are seen in either breast. There has been no significant interval change. IMPRESSION: BENIGN Status post bilateral lumpectomies. No mammographic evidence of malignancy. A 1 year screening mammog sohail is recommended. Findings and recommendations were conveyed to the patient during today's evaluation. This exam was interpreted at Station ID: [id number]. NOTE: For mammograms, a report in lay terms will be sent to the patient. Approximately 15% of breast malignancies will not be visualized mammographically. In the management of a palpable breast mass, a negative mammogram must not discourage biopsy of a clinically suspicious lesion. Electronically Signed By: Sarah Vega M.D., PH.D eb/:04/14/2023 02:16:36 letter sent: No_Letter ACR BI-RADS Category 2: Benign Finding(s) 3342F PARENCHYMAL PATTERN: (D) - The breast(s) demonstrate(s) heterogeneously dense fibroglandular phi alexander. BI-RADS CATEGORY: (2) - 2 Mammogram [id number] 1 year screening LATERALITY: (B)
== END 2023-04-13 10:49 | disposition home or self-care (01) ==
LOC: DI 10:48
PROVIDERS: ATTEND Internal Medicine
DX: C50.911 Malignant neoplasm of unspecified site of right female breast (principal); C50.912 Malignant neoplasm of unspecified site of left female breast; R92.333 Mammographic heterogeneous density, bilateral breasts; Z90.13 Acquired absence of bilateral breasts and nipples